=== PATIENT | female | born 1975 | race Caucasian/White ===

== ENCOUNTER 2024-04-10 17:47 | Emergency (ER) | payer MEDICAID, SELFPAY ==
--- NOTE | 2024-04-10 17:47 | ECG_ITS ---
[facility] Test Date: 2024-04-10 Pat Name: Mita Gant Department: Room: Gender: Female Dietitian Assistant: : 1975 Requested By: Silva Albert Order Number: [id number] Reading MD: Rocco Patel M.D. Measurements Intervals [place] Rate: 83 P: 50 MD: 195 QRS: 11 QRSD: 96 T: 41 QT: 352 QTc: 416 Interpretive Statements SINUS RHYTHM LOW QRS VOLTAGE IN PRECORDIAL LEADS [QRS DEFLECTION < 1.0 mV IN CHEST LEADS] POSSIBLE ANTERIOR MYOCARDIAL INFARCTION , PROBABLY OLD [30 ms Q WAVE IN V3/V4, OR R < 0.2 mV IN V4] INFERIOR MYOCARDIAL INFARCTION , PROBABLY OLD [40+ ms Q WAVE AND/OR ST/T ABNORMALITY IN II/aVF] No previous ECG available for comparison Electronically Signed On 04-14-2024 13:19:41 CDT by Rocco Patel M.D. [id number]
[2024-04-10 17:54] VITALS: BP 142/81; PULSE 88; RESP 16; TEMP 30.5; O2SAT 96; BMI 68.7
--- NOTE | 2024-04-10 18:02 | XRR_ITS ---
PROCEDURE INFORMATION: Exam: XR Chest Exam date and time: 04/10/2024 6:10 PM Age: 48 years old Clinical indication: Chest wall pain; Additional info: Cp TECHNIQUE: Imaging protocol: Radiologic exam of the chest. Views: 1 view. COMPARISON: No relevant prior studies available. FINDINGS: Lungs: Unremarkable. No consolidation. Pleural spaces: Unremarkable. No pleural effusion. No pneumothorax. Heart/Mediastinum: Cardiomegaly. Bones/joints: Unremarkable. XR/XR chest 1V portable [id number] IMPRESSION: Cardiomegaly.
[2024-04-10 19:31] LABS: Alanine Aminotransferase 26 U/L (0-33); Albumin Level 4.1 g/dL (3.5-5.2); Alkaline Phosphatase 73 U/L (35-105); Aspartate Amino Transferase 18 U/L (0-32); Blood Urea Nitrogen 16 mg/dL (6-20); Carbon Dioxide 27 mmol/L (22-29); Chloride 104 mmol/L (98-107); Creatinine Clr Calc Pharmacy 124.2324; Globulin 2.9 g/dL (1.3-4.6); Glomerular Filtration Rate 67.1 mL/min (90-130); Glucose 137 mg/dL (65-115); Lipase 24 U/L (13-60); Osmolality Calculated 297 mOsm/kg (285-295); Sodium 142 mmol/L (136-145); Total Bilirubin 0.5 mg/dL (0.15-1.2)
[2024-04-10 19:35] LABS: Troponin(5th) Baseline 7 ng/L (0-10)
[2024-04-10 20:40] LABS: Troponin 5 2HR 6.21 ng/L (0-10); Troponin 5 2HR Delta -0.79 ABS# (0-10)
--- NOTE | 2024-04-10 20:43 | ECG_ITS ---
[facility] Test Date: 2024-04-10 Pat Name: Mita Gant Department: Room: Gender: Female International Coordinator: : 1975 Requested By: Silva Albert Order Number: [id number] Jaciel MD: Rocco Patel M.D. Measurements Intervals [place] Rate: 71 P: 58 AR: 211 QRS: 34 QRSD: 100 T: 48 QT: 374 QTc: 409 Interpretive Statements SINUS RHYTHM WITH FIRST DEGREE AV BLOCK LOW QRS VOLTAGE IN PRECORDIAL LEADS [QRS DEFLECTION < 1.0 mV IN CHEST LEADS] POSSIBLE INFERIOR MYOCARDIAL INFARCTION , PROBABLY OLD [30 ms Q WAVE IN II/aVF] Compared to ECG 04/10/2024 17:47:43 First degree AV block now present Myocardial infarct finding still present Electronically Signed On 04-14-2024 13:47:04 CDT by Rocco Patel M.D. [id number]
--- NOTE | 2024-04-10 20:52 | ED_ITS ---
HPI - Chest Pain 2 General: Chief Complaint: Chest Pain Stated Complaint: chest discomfort, Low back pian Time Seen by Provider: 04/10/24 20:32 History of Present Illness: Patient presents to the ER with intermittent chest discomfort. Starting yesterday. She had a couple episodes that lasted only few seconds and today she had 3 more episodes that lasted a few more seconds. She says that she denies is really has pain or pressure she says it feels like we have an air bubble in your stomach and you need to burp and cannot. She has had this feeling before in addition went away on its own. The feeling is mostly under her left chest area and does not radiate. Patient denies any shortness of breath nausea vomiting diarrhea coughs colds fevers chills diaphoresis. Patient says there is nothing I can bring this pain/pressure/feeling on or make it go away just comes and goes on its own. Review of Systems 2 General: Reports: 10 or more systems reviewed and unremarkable except in HPI and below Physical Exam 2 Const: COMMON NORMALS: no acute distress, average body habitus, patient oriented x3, no limitations, healthy appearing, alert and well nourished HENMT: COMMON NORMALS: normocephalic, atraumatic, hearing grossly normal bilaterally, external ears normal, Normal external nose present and moist oral mucous membranes HEAD & SCALP: normocephalic and atraumatic NOSE: Normal external nose present EXTERNAL EAR: Yes external ears normal Neck/C-Spine: COMMON NORMALS: no JVD Chest: COMMONS NORMALS: normal inspection of the chest and normal palpation of entire chest wall Resp: COMMON NORMALS: normal respiratory effort, No retractions, No use of accessory muscles and clear to auscultation bilaterally AUSCULTATION: clear to auscultation bilaterally Cardio: COMMON NORMALS: no JVD, regular rate, regular rhythm, S1 normal heart sound present, S2 normal heart sound present, No gallops present (Cardio), No clicks present (Cardio), No murmurs present (Cardio) and No rub (Cardio) R ATE: regular rate RHYTHM: regular rhythm HEART SOUNDS: S1 normal heart sound present and S2 normal heart sound present GI: COMMON NORMALS: Normal to inspection, nondistended, normoactive bowel sounds present, Soft to palpation, non-tender, No hepatosplenomegaly present and no masses PALPATION: Yes Soft to palpation and Yes No hepatosplenomegaly present Neuro: COMMON NORMALS: patient oriented x3 SENSORIUM/ORIENTATION: Yes alert Course 2 Vital Signs: Vital signs: Vital Signs Temperature 87 F L 04/10/24 17:54 Pulse Rate 74 04/10/24 20:54 Respiratory Rate 16 04/10/24 20:54 Blood Pressure 136/91 04/10/24 20:54 Pulse Oximetry 95 04/10/24 20:54 MDM - Chest Pain Medical Decision Making Patient was worked up in a standard chest pain fashion with serial lab work, EKGs, chest x-ray, and patient also had a urinalysis. Lab work revealed a initial troponin of 7 with a 2-hour troponin of 6.2 for delta of -0.8, blood work was otherwise unremarkable, urinalysis was a contaminated specimen with 15- 25 epithelial cells. These results was discussed with the patient patient will be discharged to follow-up with her PCP. Differential Diagnosis Unlikely acute massive pulmonary embolism, acute respiratory failure, acute myocardial infarction, cardiac arrest or sudden cardiac Medical Records I reviewed the patient's medical records. Lab Data I reviewed the patient's lab results. 04/10/24 18:52 Radiology Impressions Chest X-Ray 04/10/24 18:02 IMPRESSION: Cardiomegaly. Laboratory Results Sodium 142 mmol/L (136-145) 04/10/24 18:52 Potassium 4.0 mmol/L (3.5-5.1) 04/10/24 18:52 Chloride 104 mmol/L (98-107) 04/10/24 18:52 Carbon Dioxide 27 mmol/L (22-29) 04/10/24 18:52 Anion Gap 15.0 (5-19) 04/10/24 18:52 BUN 16 mg/dL (6-20) 04/10/24 18:52 Creatinine 0.9 mg/dL (0.5-0.9) 04/10/24 18:52 GFR Calculation 67.1 mL/min (90-130) L 04/10/24 18:52 Glucose 137 mg/dL (65-115) H 04/10/24 18:52 Calculated Osmolality 297 mOsm/kg (285-295) H 04/10/24 18:52 Calcium 9.0 mg/dL (8.5-10.5) 04/10/24 18:52 Total Bilirubin 0.5 mg/dL (0.15-1.2) 04/10/24 18:52 AST 18 U/L (0-32) 04/10/24 18:52 ALT 26 U/L (0-33) 04/10/24 18:52 Alkaline Phosphatase 73 U/L (35-105) 04/10/24 18:52 Troponin T Baseline 7 ng/L (0-10) 04/10/24 18:52 Troponin T 120 Minute 6.21 ng/L (0-10) 04/10/24 20:19 Delta Troponin T -0.79 ABS# (0-10) L 04/10/24 20:19 Total Protein 7.0 g/dL (6.6-8.7) 04/10/24 18:52 Albumin 4.1 g/dL (3.5-5.2) 04/10/24 18:52 Globulin 2.9 g/dL (1.3-4.6) 04/10/24 18:52 Lipase 24 U/L (13-60) 04/10/24 18:52 Urine Color Yellow (Yellow) 04/10/24 20:47 Urine Appearance Slightly cloudy (CLEAR) 04/10/24 20:47 Urine pH 5 (5-7) 04/10/24 20:47 Ur Specific Adah 1.030 (1.005-1.030) 04/10/24 20:47 Urine Protein Neg (Negative) 04/10/24 20:47 Urine Glucose (UA) Norm (Normal) 04/10/24 20:47 Urine Ketones Negative (Negative) 04/10/24 20:47 Urine Blood Neg (Negative) 04/10/24 20:47 Urine Nitrate Negative (Negative) 04/10/24 20:47 Urine Bilirubin Neg (Negative) 04/10/24 20:47 Urine Urobilinogen Neg mg/dL (Negative) 04/10/24 20:47 Ur Leukocyte Esterase 1+ (Negative) H 04/10/24 20:47 Urine RBC 0-4 /hpf (0-2) H 04/10/24 20:47 Urine WBC 0-4 /hpf (0-5) H 04/10/24 20:47 Ur Squamous Epith Cells 15-25 /hpf (0-5) H 04/10/24 20:47 Calcium Oxalate Crystal 0-4 /hpf H 04/10/24 20:47 Amorphous Sediment Not Reportable 04/10/24 20:47 Urine Bacteria 1+ /hpf (NONE) H 04/10/24 20:47 Urine Mucus 2+ /hpf 04/10/24 20:47 All radiology interpretation(s) finalized by discharge Discharge Plan Discharge Patient Disposition: Home Clinical Impression: Atypical chest pain Condition: Stable Discharge Orders: Discharge ED (Routine); Ordered 04/10/24 Ordered By: Mick Becerra Patient Instructions: Chest Pain - Noncardiac Activity Restrictions/Additional Instructions: Your evaluation in ER did not show any acute coronary cause of your chest pain. Your blood work and EKGs were essentially benign. Your chest pain is thought to be noncardiac in nature. Please follow-up with your family practitioner for further evaluation and treatment. If your chest pain worsens please feel free to return to the ER. Coding Level of Care Code ED Clinical Asst for Susan Burnett
[2024-04-10 20:54] VITALS: BP 136/91; PULSE 74; RESP 16; O2SAT 95
[2024-04-10 21:03] LABS: Add Urine Microscopic? YES; Bilirubin Urine Neg (Negative); Blood Urine Neg (Negative); Glucose Urine UA Norm (Normal); Ketones Urine Negative (Negative); Leukocyte Esterase Urine 1+ (Negative); Nitrate Urine Negative (Negative); Protein Urine Neg (Negative); Urine Appearance Slightly Cloudy (CLEAR); Urine Color Yellow (Yellow); Urobilinogen Urine Neg (Negative); pH Urine 5 (5-7)
[2024-04-10 21:04] LABS: Add Urine Culture? No; Bacteria Urine 1+ /hpf; Calcium Oxalate Crystals Urine 0-4 /hpf; Mucus Urine 2+ /hpf; RBC Urine 0-4 /hpf (0-2); Squamous Epithelial Cell Urine 15-25 /hpf (0-5); WBC Urine 0-4 /hpf (0-5)
[2024-04-10 21:54] VITALS: BP 135/78; PULSE 78; RESP 20; O2SAT 97
== END 2024-04-10 21:55 | disposition home or self-care (01) ==
PROVIDERS: Emergency Medicine; Emergency Provider Emergency Medicine
DX: R07.89 Other chest pain (principal)
CPT/HCPCS: 36415; 71045; 80048; 80053; 81001; 83690; 84484; 93005; 99285

== ENCOUNTER 2024-07-31 14:39 | Outpatient (CLI) | payer MEDICAID, SELFPAY ==
--- NOTE | 2024-07-31 14:47 | USCV_ITS ---
Mita Gant Age: 48 Gender: F : 1975 Exam Date: 07/31/2024 14:56 Ordering Phys: Gibson Kirk MD Technologist: CT Exam Location: [facility] [place]_ Indication: sob BP: 125 / 79 HR: 77 Rhythm: Sinus Technical Quality: Technically difficult study MEASUREMENTS (Male / Female) Normal Values 2D ECHO LVOT Diameter 2.1 cm LV Ejection Fraction MOD 4C 59.7 % LV Ejection Fraction MOD 2C 63.3 % LV Ejection Fraction 2C AL 63.2 % LA Diameter 3.6 cm RA Systolic Volume 4C AL 71.7 ml RA Systolic Volume 4C MOD 68.0 ml LA Sys Volume AL 71.0 cm cubed LA Sys Volume Index AL 24.2 cm cubed/m squared Aorta at Sinotubular Diameter 2.4 cm M-MODE LA Ao Ratio MM 1.6 AV Cusp Separation MM 1.6 cm DOPPLER AV Peak Velocity 176.0 cm/s LVOT Peak Velocity 133.0 cm/s AV Area Cont Eq vti 2.9 cm squared AV Area Cont Eq pk 2.7 cm squared MV Peak Velocity 120.0 cm/s MV Area PHT 5.0 cm squared Mitral E to A Ratio 1.4 TR Peak Velocity 189.0 cm/s TR Peak Gradient 14.3 mmHg TV Peak E Velocity 66.0 cm/s Right Atrial Pressure 3.0 mmHg Pulmonary Artery Systolic Pressu 17.3 mmHg PV Peak Velocity 156.0 cm/s FINDINGS Left Ventricle Normal left ventricular size, systolic function and wall thickness, with no regional wall motion abnormalities. Left ventricular ejection fraction is estimated at 65 %. Normal diastolic function. Right Ventricle The right ventricle is normal in size and function. Right Atrium The right atrium is normal in size. Left Atrium The left atrium is normal in size. Mitral Valve Structurally normal mitral valve without significant stenosis or prolapse. There is no mitral regurgitation. Aortic Valve Structurally normal aortic valve without significant sclerosis or stenosis. There is no aortic regurgitation. Tricuspid Valve Structurally normal tricuspid valve without significant stenosis or regurgitation. Pulmonary artery systolic pressure is normal. Pulmonic Valve Structurally normal pulmonic valve without significant stenosis. There is no pulmonic regurgitation. Pericardium Normal pericardium without effusion. Aorta Normal ascending aorta dimension. IVC The inferior vena cava appears normal. CONCLUSIONS Normal left ventricular size, systolic function and wall thickness, with no regional wall motion abnormalities. Left ventricular ejection fraction is estimated at 65 %. Normal diastolic function. No significant chamber abnormalities. There is no pericardial effusion. Pulmonary artery systolic pressure is within normal limits. Right atrial pressure is around 5 mm of mercury. Kevin Jacobson MD (Electronically Signed) Final Date: 01 August 2024 12:40 S
== END 2024-07-31 14:40 | disposition home or self-care (01) ==
LOC: RAD 14:41
PROVIDERS: Visit Provider Family Medicine
DX: I50.9 Heart failure, unspecified (principal)
CPT/HCPCS: 93306